=== PATIENT | male | born 1970 | race Native Hawaiian/Other Pacific Islander ===

== ENCOUNTER 2016-09-03 02:22 | Emergency (ER) | payer BC ==
[~2016-09-03] VITALS: Ht 193 cm; Wt 118.8 kg
[2016-09-03 02:55] LABS: PLATELET COUNT 146 K/uL (142-355)
[2016-09-03 03:22] LABS: POTASSIUM 4.3 mmol/L (3.6-5.2)
[2016-09-03 04:11] VITALS: BP 157/83; TEMP 98.4
== END 2016-09-03 04:12 | disposition home or self-care (01) ==
LOC: ED 02:22
DX: J20.9 Acute bronchitis, unspecified (principal); R00.1 Bradycardia, unspecified
CPT/HCPCS: 36415; 80053; 85027; 86318; 96365; 99284; J0696